=== PATIENT | female | born 2000 | race Caucasian/White ===

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

== ENCOUNTER → 2018-02-15 | Outpatient (REF) | payer OTHER ==
[2018-02-15 22:00] LABS: APPEARANCE, URINE CLEAR (CLEAR); BACTERIA, URINE AUTO NEGATIVE (NEGATIVE); BILIRUBIN, URINE AUTO NEGATIVE (NEGATIVE); BLOOD, URINE BLOOD NEGATIVE (NEGATIVE); COLOR, URINE YELLOW (YELLOW); GLUCOSE, URINE (UA) AUTO NEGATIVE (NEGATIVE); KETONE, URINE AUTO NEGATIVE (NEGATIVE); LEUKOCYTE ESTERASE, URINE AUTO NEGATIVE (NEGATIVE); MUCUS, URINE SMALL (NEGATIVE); NITRITE, URINE AUTO NEGATIVE (NEGATIVE); PROTEIN, URINE AUTO NEGATIVE (NEGATIVE); RBC, URINE AUTO 1 /HPF (0-3); SPECIFIC GRAVITY URINE AUTO 1.017 (1.002-1.035); SQUAMOUS EPITHELIAL CELL UR AU 1 /HPF (0-6); UROBILINOGEN, URINE AUTO 0.2 mg/dL (0.0-2.0); WBC, URINE AUTO 1 /HPF (0-3)
[2018-02-15 22:03] LABS: CHLAMYDIA DNA AMPLIFICATION NEGATIVE (NEGATIVE); GC DNA AMPLIFICATION NEGATIVE (NEGATIVE)
== END ==
LOC: M LAB REF 17:40
DX: N76.0 Acute vaginitis (principal)

== ENCOUNTER → 2018-07-31 | Outpatient (REF) | payer OTHER ==
[2018-07-31 15:05] LABS: CHLAMYDIA DNA AMPLIFICATION NEGATIVE (NEGATIVE); GC DNA AMPLIFICATION NEGATIVE (NEGATIVE)
== END ==
LOC: M SFHCWAGY 13:18
PROVIDERS: ATTEND Nurse Practitioner Family
DX: R30.0 Dysuria (principal); Z11.3 Encounter for screening for infections with a predominantly sexual mode of transmission

== ENCOUNTER → 2019-06-13 | Outpatient (REF) | payer OTHER ==
[2019-06-13 17:15] LABS: MONO SCRN NEGATIVE (NEGATIVE)
[2019-06-13 17:20] LABS: ALT/SGPT 24 U/L (12-78); BILIRUBIN,TOTAL 0.2 MG/DL (0.2-1.0); BLOOD UREA NITROGEN 12 MG/DL (7-18); CALCIUM LEVEL 9.2 MG/DL (8.5-10.1); CARBON DIOXIDE LEVEL 26 MEQ/L (21-32); CHLORIDE LEVEL 107 MEQ/L (98-107); CREATININE FOR GFR 0.72 MG/DL (0.55-1.30); FERRITIN 25 NG/ML (8-252); GLUCOSE, FASTING 88 MG/DL (70-100); IRON (FE) 90 UG/DL (50-170); POTASSIUM SERUM 4.5 MEQ/L (3.5-5.1); SODIUM LEVEL 141 MEQ/L (136-145); THYROID STIMULATING HORMONE 0.725 uIU/ML (0.463-3.98); TOTAL IRON BINDING CAPACITY 410 UG/DL (250-450); TOTAL PROTEIN 7.5 GM/DL (6.4-8.2)
[2019-06-13 17:23] LABS: VITAMIN B12 LEVEL 380 PG/ML (247-911)
[2019-06-13 17:24] LABS: HEMATOCRIT 43.1 % (36.0-47.0); HEMOGLOBIN 13.8 g/dl (12.0-15.5); MEAN CORPUSCULAR HEMOGLOBIN 29.4 pg (27.0-33.0); MEAN CORPUSCULAR VOLUME 91.7 fl (80.0-96.0); PLATELET COUNT, AUTOMATED 323 10^3/uL (150-450)
== END ==
LOC: M SFHCCLAY 11:40
PROVIDERS: ATTEND Nurse Practitioner Family
DX: R53.83 Other fatigue (principal); F32.9 Major depressive disorder, single episode, unspecified

== ENCOUNTER → 2020-06-10 | Outpatient (REF) | payer OTHER | LOC: M SFHCCLAY 15:15 | PROVIDERS: ATTEND Nurse Practitioner Family | DX: Z01.84 Encounter for antibody response examination (principal) ==

== ENCOUNTER → 2020-07-10 | Outpatient (REF) | payer OTHER ==
[2020-07-10 19:42] LABS: CHLAMYDIA DNA AMPLIFICATION NEGATIVE (NEGATIVE); GC DNA AMPLIFICATION NEGATIVE (NEGATIVE)
== END ==
LOC: M SFHCWAGY 16:53
PROVIDERS: ATTEND Nurse Practitioner Family
DX: Z12.4 Encounter for screening for malignant neoplasm of cervix (principal)
CPT/HCPCS: 87491; 87591; G0123

== ENCOUNTER → 2020-11-29 | Outpatient (CLI) | payer SELFPAY | LOC: M LABSMTC 09:28 | PROVIDERS: ATTEND Pediatrics | DX: Z20.822 Contact with and (suspected) exposure to COVID-19 (principal) ==

== ENCOUNTER → 2021-03-25 | Outpatient (CLI) | payer OTHER ==
--- NOTE | 2021-03-25 10:52 | REP ---
INDICATION: ACUTE BRONCHITIS, UNSPECIFIED. COMPARISON: None. TECHNIQUE: PA and lateral FINDINGS: The superior mediastinal structures are midline. The cardiac silhouette is unremarkable in size, shape, and position. The diaphragmatic surfaces of the lungs are regular, and the costophrenic angles are clear. The pulmonary jamil are clear. The imaged osseous structures are intact. IMPRESSION: There is no acute cardiopulmonary disease. <Electronically signed by Justin Baig > 03/25/21 1049
== END ==
LOC: M WUC 08:34
PROVIDERS: ATTEND Physician Assistant
DX: J20.9 Acute bronchitis, unspecified (principal); Z20.828 Contact with and (suspected) exposure to other viral communicable diseases

== ENCOUNTER → 2021-08-05 | Outpatient (CLI) | payer OTHER ==
[~2021-08-05] MED LIST: E-Z-GAS II EFFERVESCENT PACKET (SODIUM BICARB./CITRIC ACID/SIMETHICONE) As Ordered ONE; E-Z-HD 98% w/w 340GM SUSP BTL As Ordered ONE; E-Z-PAQUE 96% w/w SUSP 176GM BTL As Ordered ONE
== END ==
LOC: M RAD 08:08
PROVIDERS: ATTEND Nurse Practitioner Family
DX: K21.9 Gastro-esophageal reflux disease without esophagitis (principal)

== ENCOUNTER → 2021-08-12 | Outpatient (CLI) | payer OTHER | LOC: M CARPUL 08:45 | PROVIDERS: ATTEND Nurse Practitioner Family | DX: R00.2 Palpitations (principal) ==

== ENCOUNTER → 2021-12-07 | Outpatient (CLI) | payer OTHER | LOC: M SOG 09:16 | PROVIDERS: ATTEND Orthopaedic Surgery Hand Surgery | DX: M25.531 Pain in right wrist (principal) ==

== ENCOUNTER → 2021-12-20 | Outpatient (CLI) | payer OTHER | LOC: M RAD 08:36 | PROVIDERS: ATTEND Orthopaedic Surgery Hand Surgery | DX: M25.531 Pain in right wrist (principal) ==